=== PATIENT | male | born 1980 | race Caucasian/White ===

== ENCOUNTER 2017-08-04 22:59 | Inpatient (IN) | payer SELFPAY ==
[~2017-08-04] VITALS: Ht 182.9 cm; Wt 69.0 kg
[~2017-08-04 22:59] MED LIST: CLIN1CAP5 PO; LORTA5 PO; PENI500T PO; PERC5TAB12 PO
[2017-08-04 23:20] VITALS: BP 103/51; PULSE 103; RESP 15; TEMP 102.7; O2SAT 100
[2017-08-04] MEDS ORDERED: SODIUM CHLOR 0.9% 1000 ML INJ 400 ML IV ONE (23:32)
[2017-08-04] MEDS ORDERED: SODIUM CHLOR 0.9% 1000 ML INJ 1,000 ML IV ONE ×2 (23:32)
[2017-08-04 23:39] VITALS: RESP 15; O2SAT 100
--- NOTE | 2017-08-04 23:40 | PD ---
HPI Chief Complaint: Medical Clearance Time Seen by Provider: 23:29 Travel History International Travel<30 days: No Contact w/Intl Traveler<30days: No Traveled to known affect area: No History of Present Illness HPI 37 years old male was brought in by EMS for generalized malaise and not feeling well. Patient uncooperative to EMS and not answering questions. Patient is not answering questions to me and my nurse also. Unable to find out any past medical history, medication, allergies. PFSH Past Medical History Asthma: Yes Blood Disorders: No Anxiety: Yes Cancer: No Diminished Hearing: No Endocrine: No Gastrointestinal Disorders: No Genitourinary: No Immune Disorder: No Implanted Vascular Access Dvce: No Musculoskeletal: Yes (FX FEMUR, FX MANDIBLE, FX HAND) Neurologic: No Psychiatric: Yes Reproductive: No Respiratory: Yes PNEUMOCCOCAL Vaccine (Year): 2 Past Surgical History Abdominal Surgery: No Cardiac Surgery: No Ear Surgery: No Endocrine Surgery: No Eye Surgery: No Genitourinary Surgery: No Gynecologic Surgery: No Neurologic Surgery: No Oral Surgery: Yes (FRACTURED MANDIBLE RIGHT 2008) Thoracic Surgery: No Other Surgery: Yes Social History Alcohol Use: No Tobacco Use: Yes (1 PPD) Substance Use: Yes Allergies-Medications (Allergen,Severity, Reaction): Coded Allergies: codeine (Unverified Adverse Reaction, Mild, Nausea/Vomiting, 06/05/17) Reported Meds & Prescriptions Reported Meds & Active Scripts Active Percocet 5-325 mg (Oxycodone/Acetaminophen) Oxycodone 5/325 Acetaminophen Tab 1 Tab PO Q6H PRN Clindamycin Hcl (Clindamycin HCl) 150 Mg Cap 300 Mg PO Q6H Reported Hydrocodone/Acetaminophen 5 mg/325 mg 1 Tab 1 Tab PO Q4H PRN Pen Vk (Penicillin V Potassium) 500 Mg Tab 500 Mg PO QID Review of Systems General / Constitutional: Positive: Fever Eyes: No: Visual changes HENT: No: Headaches Cardiovascular: No: Chest Pain or Discomfort Respiratory: No: Shortness of Breath Gastrointestinal: No: Abdominal Pain Genitourinary: No: Dysuria Musculoskeletal: No: Pain Skin: No Rash Neurologic: No: Weakness Psychiatric: No: Depression Endocrine: No: Polydipsia Hematologic/Lymphatic: No: Easy Bruising Physical Exam Narrative GENERAL: Well-nourished, well-developed patient. SKIN: Focused skin assessment warm/dry. Multiple pustule lesions on the extremities. HEAD: Normocephalic. EYES: No scleral icterus. No injection or drainage. Pupils 3 mm equal reactive. NECK: Supple, trachea midline. No JVD or lymphadenopathy. No meningismus CARDIOVASCULAR: Regular rate and rhythm without murmurs, gallops, or rubs. RESPIRATORY: Breath sounds equal bilaterally. No accessory muscle use. GASTROINTESTINAL: Abdomen soft, non-tender, nondistended. MUSCULOSKELETAL: No cyanosis, or edema. BACK: Nontender without obvious deformity. No CVA tenderness. Neurologic exam: Patient is lethargic, refuses answer questions. Patient moves all extremity well. Patient looking around and open eyes on his own. No obvious focal neurological deficit. Data Data Last Documented VS Vital Signs Date Time Temp Pulse Resp B/P (MAP) Pulse Ox O2 Delivery O2 Flow Rate FiO2 08/05/17 03:08 99 15 94/52 (66) 94 08/04/17 23:39 Room Air 08/04/17 23:20 102.7 Orders Orders Electrocardiogram (08/04/17 23:32) Complete Blood Count With Diff (08/04/17 23:32) Comprehensive Metabolic Panel (08/04/17 23:32) Prothrombin Time / Inr (Pt) (08/04/17:32) Act Partial Throm Time (Ptt) (08/04/17 23:32) Lactic Acid Sepsis Protocol (08/04/17 23:32) Magnesium (Mg) (08/04/17:32) Phosphorus (Po4) (08/04/17 23:32) Troponin I (08/04/17:32) Urinalysis - C+S If Indicated (08/04/17 23:32) Blood Culture (08/04/17 23:32) Chest, Single Ap (08/04/17 23:32) Blood Glucose (08/04/17 23:32) Ecg Monitoring (08/04/17:32) Iv Access Insert/Monitor (08/04/17:32) Oximetry (08/04/17:32) Oxygen Administration (08/04/17 23:32) Sodium Chlor 0.9% 1000 Ml Inj (Ns 1000 M (08/04/17 23:32) Sodium Chlor 0.9% 1000 Ml Inj (Ns 1000 M (08/04/17 23:32) Sodium Chlor 0.9% 1000 Ml Inj (Ns 1000 M (08/04/17 23:32) Vancomycin Inj (Vancomycin Inj) (08/04/17 23:45) Piperacil-Tazo 3.375 Gm Premix (Zosyn 3. (08/04/17 23:45) Ondansetron Inj (Zofran Inj) (08/05/17 00:00) Calcium Gluconate Inj (Calcium Gluconate (08/05/17 01:00) Potassium Chloride (Kcl) (08/05/17 01:00) Potassium Chlor 20 Meq Premix (Kcl 20 Me (08/05/17 01:00) Acetaminophen Supp (Tylenol Supp) (08/05/17 03:15) Potassium Chlor 20 Meq Premix (Kcl 20 Me (08/05/17 03:15) Labs Laboratory Tests Test 08/04/17 23:38 White Blood Count 4.2 TH/MM3 Red Blood Count 3.28 MIL/MM3 Hemoglobin 9.7 GM/DL Hematocrit 28.7 % Mean Corpuscular Volume 87.7 FL Mean Corpuscular Hemoglobin 29.5 PG Mean Corpuscular Hemoglobin Concent 33.7 % Red Cell Distribution Width 12.8 % Platelet Count 126 TH/MM3 Mean Platelet Volume 7.9 FL Neutrophils (%) (Auto) 89.6 % Lymphocytes (%) (Auto) 5.7 % Monocytes (%) (Auto) 4.6 % Eosinophils (%) (Auto) 0.0 % Basophils (%) (Auto) 0.1 % Neutrophils # (Auto) 3.7 TH/MM3 Lymphocytes # (Auto) 0.2 TH/MM3 Monocytes # (Auto) 0.2 TH/MM3 Eosinophils # (Auto) 0.0 TH/MM3 Basophils # (Auto) 0.0 TH/MM3 CBC Comment DIFF FINAL Differential Comment Prothrombin Time 11.4 SEC Prothromb Time International Ratio 1.0 RATIO Activated Partial Thromboplast Time 25.4 SEC Blood Urea Nitrogen 6 MG/DL Creatinine 0.66 MG/DL Random Glucose 91 MG/DL Total Protein 5.4 GM/DL Albumin 2.2 GM/DL Calcium Level 6.1 MG/DL Phosphorus Level 1.2 MG/DL Magnesium Level 1.2 MG/DL Alkaline Phosphatase 50 U/L Aspartate Amino Transf (AST/SGOT) 9 U/L Alanine Aminotransferase (ALT/SGPT) 10 U/L Total Bilirubin 0.7 MG/DL Sodium Level 138 MEQ/L Potassium Level 2.7 MEQ/L Chloride Level 110 MEQ/L Carbon Dioxide Level 20.7 MEQ/L Anion Gap 7 MEQ/L Estimat Glomerular Filtration Rate 137 ML/MIN Lactic Acid Level 1.2 mmol/L Protein Corrected Calcium 6.9 MG/DL Troponin I LESS THAN 0.02 NG/ML MDM Medical Decision Making Medical Screen Exam Complete: Yes Emergency Medical Condition: Yes Interpretation(s) 2:56 AM. Chest x-ray shows no acute consolidation. CBC WBC 4.2. Hemoglobin 9.7 hematocrit 20.7. Platelet 126. 89 neutrophil. Potassium 2.7. Chloride 110. Bicarbonate 20.7. Protein corrected calcium 6.9. Cardiac enzymes are normal. Lactic acid 1.2. Differential Diagnosis Differential diagnosis including sepsis, meningitis, electrolyte abnormality, dehydration, TIA, CVA. Narrative Course 37 years old male with fever and multiple partial lesions on the extremity. Suspecting IV drug abuse. Suspecting sepsis. Normal saline solution 2 L IV bolus. Vancomycin 1 g IV. Zosyn 3.375 g IV given. KCl 20 mEq IV given. Repeat KCl 20 mEq IV. Patient refused to take KCl by mouth. Tylenol 650 mg suppository given. Calcium gluconate 1 g IV given. Diagnosis Primary Impression: Sepsis Qualified Codes: A41.9 - Sepsis, unspecified organism Additional Impressions: Hypokalemia Hypocalcemia Nathan Florian MD Aug 04, 2017 23:40
[2017-08-04] MEDS ORDERED: VANCOMYCIN INJ 1,000 MG in SODIUM CHLOR 0.9% 250 ML INJ 250 ML IV ONE (23:45)
[2017-08-04] MEDS ORDERED: PIPERACIL-TAZO 3.375 GM PREMIX 50 ML IV ONE (23:45)
[2017-08-05] VITALS (11 sets, daily range): BP systolic 94–114; BP diastolic 50–68; PULSE 70–99; RESP 15–32; TEMP 98.9–100.8; O2SAT 94–100
[2017-08-05] MEDS ORDERED: ONDANSETRON HCL 4 MG/2 ML VIAL IV PUSH ONE
--- NOTE | 2017-08-05 | RADRPT ---
EXAM DATE/TIME: 08/04/2017 23:49 [facility] COMPARISON: No previous studies available for comparison. INDICATIONS : Fever. MEDICAL HISTORY : Unobtainable. SURGICAL HISTORY : Unobtainable. ENCOUNTER: Initial ACUITY: 1 day PAIN SCORE: Non-responsive. LOCATION: Bilateral chest FINDINGS: The image is distorted by motion blurring. The heart size is normal. The lungs are grossly clear. A s ignificant effusion is not seen. CONCLUSION: No acute disease. Ulysses Valentino MD on August 04, 2017 at 23:58 Board Certified Radiologist. This report was verified electronically.
[2017-08-05 00:14] LABS: AUTOMATED NEUTROPHIL # 3.7 TH/MM3 (1.8-7.7); BASOPHIL % 0.1 % (0.0-2.0); HEMATOCRIT 28.7 % (39.0-51.0); HEMO FLAGS DIFF FINAL; LYMPH % 5.7 % (9.0-44.0); LYMPHOCYTE # 0.2 TH/MM3 (1.0-4.8); MEAN CELL VOLUME 87.7 FL (80.0-100.0); MEAN CORPUSCULAR HEMOGLOBIN 29.5 PG (27.0-34.0); MEAN CORPUSCULAR HGB CONC 33.7 % (32.0-36.0); MONO % 4.6 % (0.0-8.0); NEUT % 89.6 % (16.0-70.0); PLATELET COUNT 126 TH/MM3 (150-450); RED BLOOD COUNT 3.28 MIL/MM3 (4.50-5.90); RED CELL DISTRIBUTION WIDTH 12.8 % (11.6-17.2); WHITE BLOOD COUNT 4.2 TH/MM3 (4.0-11.0)
[2017-08-05 00:22] LABS: APTT (PATIENT) 25.4 SEC (24.3-30.1); PROTHROMBIN TIME - PATIENT 11.4 SEC (9.8-11.6)
[2017-08-05 00:45] LABS: ALKALINE PHOSPHATASE 50 U/L (45-117); ALT (GPT) 10 U/L (12-78); ANION GAP 7 MEQ/L (5-15); AST (GOT) 9 U/L (15-37); BICARBONATE 20.7 MEQ/L (21.0-32.0); BLOOD UREA NITROGEN 6 MG/DL (7-18); CHLORIDE 110 MEQ/L (98-107); GLOMERULAR FILTRATION RATE 137 ML/MIN (>89); MAGNESIUM 1.2 MG/DL (1.5-2.5); SODIUM (NA) 138 MEQ/L (136-145); TOTAL BILIRUBIN ADULT 0.7 MG/DL (0.2-1.0)
[2017-08-05 00:49] LABS: CALCIUM-PROTEIN CORRECTED 6.9 MG/DL (8.5-10.1); POTASSIUM 2.7 MEQ/L (3.5-5.1)
[2017-08-05] MEDS ORDERED: POTASSIUM CHLORIDE 20 MEQ CONTROLLED RELEASE TAB PO ONE (01:00)
[2017-08-05] MEDS ORDERED: CALCIUM GLUCONATE INJ 1 GM in DEXTROSE 5% IN WATER 100ML INJ 100 ML IV ONE ×2 (01:00)
[2017-08-05] MEDS ORDERED: POTASSIUM CHLOR 20 MEQ PREMIX 100 ML IV ONE ×2 (01:00→03:15)
[2017-08-05] MEDS ORDERED: ACETAMINOPHEN 650 MG SUPP RECTAL ONE (03:15)
[2017-08-05] MEDS ORDERED: SODIUM CHLOR 0.9% 1000 ML INJ 1,000 ML IV SCH (03:40)
[2017-08-05] MEDS ORDERED: CHLORHEXIDINE GLUCONATE 2 % 1 PACK (2 CLOTHS) TOP PRN (03:45)
[2017-08-05] MEDS ORDERED: SODIUM CHLORIDE 0.9% FLUSH 10 ML FLUSH IV FLUSH PRN (03:45)
[2017-08-05] MEDS ORDERED: RESP: ALBUTEROL 2.5 MG/3 ML NEB (PRN) INH (03:45)
[2017-08-05] MEDS ORDERED: POTASSIUM PHOSPHATE INJ 30 MMOL in SODIUM CHLOR 0.9% 250 ML INJ 250 ML IV PRN (03:45)
[2017-08-05] MEDS ORDERED: POTASSIUM CHLOR 20 MEQ PREMIX 100 ML IV PRN ×2 (03:45)
[2017-08-05] MEDS ORDERED: BISACODYL 10 MG SUPP RECTAL PRN (03:45)
[2017-08-05] MEDS ORDERED: ONDANSETRON HCL 4 MG/2 ML VIAL IV PUSH PRN (03:45)
[2017-08-05] MEDS ORDERED: SODIUM PHOSPHATE INJ 30 MMOL in SODIUM CHLOR 0.9% 250 ML INJ 240 ML IV PRN (03:45)
[2017-08-05] MEDS ORDERED: MAGNESIUM HYDROXIDE SUSP 30 ML CUP PO PRN (03:45)
[2017-08-05] MEDS ORDERED: ACETAMINOPHEN 325 MG TAB PO PRN (03:45)
[2017-08-05] MEDS ORDERED: MISCELLANEOUS NURSING INFORMATION XX SCH (03:45)
[2017-08-05] MEDS ORDERED: SENNOSIDES 8.6 MG TAB PO PRN (03:45)
[2017-08-05] MEDS ORDERED: POTASSIUM CHLORIDE 25 MEQ EFFERVESCENT TAB PO PRN (03:45)
[2017-08-05] MEDS ORDERED: POTASSIUM CHLOR 40 MEQ PREMIX 100 ML IV PRN ×2 (03:45)
[2017-08-05] MEDS ORDERED: MAGNESIUM SULFATE INJ 4 GM in SODIUM CHLORIDE 0.9% INJ 92 ML IV PRN (03:45)
[2017-08-05] MEDS ORDERED: MAGNESIUM SULFATE INJ 2 GM in SODIUM CHLORIDE 0.9% INJ 96 ML IV PRN (03:45)
[2017-08-05] MEDS ORDERED: LACTULOSE SYRUP 20 GM/30 ML CUP PO PRN (03:45)
[2017-08-05] MEDS ORDERED: MAGNESIUM OXIDE 400 MG TAB PO PRN (03:45)
[2017-08-05] MEDS ORDERED: POTASSIUM PHOSPHATE MONOBASIC 500 MG TAB PO/TUBE PRN (03:45)
[2017-08-05] MEDS ORDERED: POTASSIUM PHOSPHATE MONOBASIC 500 MG TAB PO PRN (03:45)
[2017-08-05] MEDS ORDERED: CHLORHEXIDINE GLUCONATE 2 % 1 PACK (2 CLOTHS) TOP SCH (04:00)
--- NOTE | 2017-08-05 04:19 | HHI.HP ---
HPI Service Critical Care Medicine Primary Care Physician No Primary Care Physician Admission Diagnosis sepsis. Hypokalemia. Hypocalcemia. Diagnosis: Travel History International Travel<30 Days: No Contact w/Intl Traveler <30 Da: No Traveled to Known Affected Are: No Sepsis Criteria SIRS Criteria (2 or more): Temp > 100.9 or < 96.8, Heart rate over 90 Sepsis Criteria (SIRS+source): Infect source susp/known Criteria Outcome: Meets sepsis criteria History of Present Illness 37-year-old male with past medical history of alcohol abuse who presents to [facility] emergency department after he called [facility] from [place] due to "not feeling well". He does not answer any more detailed questions regarding his symptoms. He is awake but is refusing to cooperate with staff, swearing and threatening. He is febrile to 102.7 is tachycardic in 110s. Normotensive. He has multiple scabbed skin lesions on right chest and right lower leg and left arm which may be due to picking behavior vs skin popping. He seems to have some rhinorrhea. No cough. CXR is negative. U/a is pending. WBC is 4.2, hgb 97 and platelets are 126. Coags are normal. Normal creatinine and lactic acid. She is hypokalemic, Hypocalcemic, hypophosphatemic, and hypomagnesemic. He received 3 L normal saline bolus, vancomycin, Zosyn, potassium chloride 40 mEq IV, calcium gluconate 1 g IV in the emergency department. Past Family Social History Allergies: Coded Allergies: codeine (Unverified Adverse Reaction, Mild, Nausea/Vomiting, 06/05/17) Past Medical History Alcohol abuse Tobacco abuse Past Surgical History ORIF left femur 08/2008 ORIF mandible 06/2009 Chest tube 2007 Reported Medications None Family History Unable to obtain secondary to patient's clinical condition Social History Tobacco abuse Alcohol abuse UDS positive for opiates and benzos during prior visits. Physical Exam Vital Signs Vital Signs Date Time Temp Pulse Resp B/P (MAP) Pulse Ox O2 Delivery O2 Flow Rate FiO2 08/05/17 03:08 99 15 94/52 (66) 94 08/04/17 23:39 15 100 Room Air 08/04/17 23:20 102.7 103 15 103/51 (68) 100 Physical Exam GENERAL: Thin male who is laying curled up in the ED stretcher under the sheets complaining of chills. He is uncooperative. SKIN: Warm and dry. She has multiple ~1cm scabbed skin lesions over left arm, right chest, right leg. Some on right lower leg have some mild surrounding erythema. None appear fluctuant or with spontaneous drainage. HEAD: Atraumatic. Normocephalic. EYES: Pupils equal and round, 2mm . No scleral icterus. No injection or drainage. ENT: Very poor dentition with broken decayed teeth. Not cooperative with full oral exam. Mucous membranes dry. NECK: Trachea midline. No JVD. Neck is very supple without meningismus. CARDIOVASCULAR: Tachycardic, regular, sinus tach on the monitor with rate in the 110s.. No murmurs rubs or gallops. RESPIRATORY: Not coughing during the exam. Clear to auscultation bilaterally with no wheezes Rales or rhonchi. GASTROINTESTINAL: Abdomen soft, non-tender, nondistended. Bowel sounds present. No rebound or guarding. No CVA tenderness. : He held urinal and voided about 400 ML's of light yellow urine. MUSCULOSKELETAL: Extremities without clubbing, cyanosis, or edema. No obvious deformities. NEUROLOGICAL: Opens eyes spontaneously. Moves all extremities actively without focal deficit. He does not answer questions of orientation, says "leave me alone" and "f all you guys". Laboratory Laboratory Tests Test 08/04/17 23:38 White Blood Count 4.2 Red Blood Count 3.28 Hemoglobin 9.7 Hematocrit 28.7 Mean Corpuscular Volume 87.7 Mean Corpuscular Hemoglobin 29.5 Mean Corpuscular Hemoglobin Concent 33.7 Red Cell Distribution Width 12.8 Platelet Count 126 Mean Platelet Volume 7.9 Neutrophils (%) (Auto) 89.6 Lymphocytes (%) (Auto) 5.7 Monocytes (%) (Auto) 4.6 Eosinophils (%) (Auto) 0.0 Basophils (%) (Auto) 0.1 Neutrophils # (Auto) 3.7 Lymphocytes # (Auto) 0.2 Monocytes # (Auto) 0.2 Eosinophils # (Auto) 0.0 Basophils # (Auto) 0.0 CBC Comment DIFF FINAL Differential Comment Prothrombin Time 11.4 Prothromb Time International Ratio 1.0 Activated Partial Thromboplast Time 25.4 Blood Urea Nitrogen 6 Creatinine 0.66 Random Glucose 91 Total Protein 5.4 Albumin 2.2 Calcium Level 6.1 Phosphorus Level 1.2 Magnesium Level 1.2 Alkaline Phosphatase 50 Aspartate Amino Transf (AST/SGOT) 9 Alanine Aminotransferase (ALT/SGPT) 10 Total Bilirubin 0.7 Sodium Level 138 Potassium Level 2.7 Chloride Level 110 Carbon Dioxide Level 20.7 Anion Gap 7 Estimat Glomerular Filtration Rate 137 Lactic Acid Level 1.2 Protein Corrected Calcium 6.9 Troponin I LESS THAN 0.02 Date/Time Source Procedure Growth Status 08/04/17 23:39 Blood Peripheral Aerobic Blood Culture Pending Received 08/04/17 23:39 Blood Peripheral Anaerobic Blood Culture Pending Received Result Diagram: 08/04/17233708/04/172337 Septic Shock Reassessment Heart: Other (tachycardic) Lungs: Clear Skin: Warm Peripheral Pulses: Bounding Right Radial Bounding Left Radial Bounding Right Posterior Tibial Bounding Left Posterior Tibial Capillary Refill: <2 seconds Caprini VTE Risk Assessment Caprini Risk Assessment Model Point Value = 1 Point Value = 2 Point Value = 3 Point Value = 5 Age 41-60 Minor surgery BMI > 25 kg/m2 Swollen legs Varicose veins or History of unexplained or recurrent spontaneous Oral contraceptives or hormone replacement Sepsis (< 1 month) Serious lung disease, including pneumonia (< 1 month) Abnormal pulmonary function Acute myocardial infarction Congestive heart failure (< 1 month) History of inflammatory bowel disease Medical patient at bed rest Age 61-74 Arthroscopic surgery Major open surgery (> 45 min) Laparoscopic surgery (> 45 min) Malignancy Confined to bed (> 72 hours) Immobilizing plaster cast Central venous access Age >= 75 History of VTE Family history of VTE Factor V Leiden Prothrombin [id number] Lupus anticoagulant Anticardiolipin antibodies Elevated serum homocysteine Heparin-induced thrombocytopenia Other congenital or acquired thrombophilia Stroke (< 1 month) Elective arthroplasty Hip, pelvis, or leg fracture Acute spinal cord injury (< 1 month) Prophylaxis Regimen Total Risk Factor Score Risk Level Prophylaxis Regimen 0-1 Low Early ambulation 2 Moderate Order ONE of the following: *Sequential Compression Device (SCD) *Heparin 5000 units SQ BID 3-4 Higher Order ONE of the following medications: *Heparin 5000 units SQ TID *Enoxaparin/Lovenox 40 mg SQ daily (WT < 150 kg, CrCl > 30 mL/min) *Enoxaparin/Lovenox 30 mg SQ daily (WT < 150 kg, CrCl > 10-29 mL/min) *Enoxaparin/Lovenox 30 mg SQ BID (WT < 150 kg, CrCl > 30 mL/min) AND/OR *Sequential Compression Device (SCD) 5 or more Highest Order ONE of the following medications: *Heparin 5000 units SQ TID (Preferred with Epidurals) *Enoxaparin/Lovenox 40 mg SQ daily (WT < 150 kg, CrCl > 30 mL/min) *Enoxaparin/Lovenox 30 mg SQ daily (WT < 150 kg, CrCl > 10-29 mL/min) *Enoxaparin/Lovenox 30 mg SQ BID (WT < 150 kg, CrCl > 30 mL/min) AND *Sequential Compression Device (SCD) Assessment and Plan Problem List: (1) Tobacco abuse ICD Code: Z72.0 - Tobacco use (2) H/O ETOH abuse ICD Code: Z87.898 - Personal history of other specified conditions (3) Anemia ICD Code: D64.9 - Anemia, unspecified (4) Thrombocytopenia ICD Code: D69.6 - Thrombocytopenia, unspecified (5) Protein-calorie malnutrition, mild ICD Code: E44.1 - Mild protein-calorie malnutrition (6) Hypokalemia ICD Code: E87.6 - Hypokalemia Status: Acute (7) Hypocalcemia ICD Code: E83.51 - Hypocalcemia Status: Acute (8) Sepsis ICD Code: A41.9 - Sepsis, unspecified organism Status: Acute (9) Cocaine abuse ICD Code: F14.10 - Cocaine abuse, uncomplicated Assessment and Plan NEURO: h/o Alcohol abuse Thiamine/multivitamin/folate acid IV x 5 days. Can be changed to po if patient became cooperative with taking medications. Monitor for alcohol withdrawal. CT brain to evaluate for e/o septic emboli. Refused to take Tylenol by mouth for fever. Ofirmev 1 g IV now. Send UDS now. RESP: Tobacco abuse On room air. Chest x-ray negative. CV: Monitor blood pressure and heart rate. Received 3 L normal saline bolus in the emergency department. He is normotensive with normal lactic acid. He is voiding. We'll continue maintenance fluids as per below. GI: Regular diet LFTs are normal. FEN/RENAL: Hypokalemia Hypophosphatemia Hypomagnesemia Hypocalcemia He is voiding. Monitor intake and output. Monitor electrolytes and continue to replace. Received potassium chloride 40 mEq IV in the emergency department. We'll give magnesium sulfate 2 g IV now and potassium phosphate 30 mmol IV now. IV fluids with D5 0.45 NaCl with 40 mEq of KCl per liter at 125 mL/hr. repeat BMP/Max/phos at noon Obtain CPK ID: Sepsis Indwelling hardware with prior clemente and screw of L femur, plate of mandible. Patient is septic. Appears likely that he uses IV drugs. He has received Zosyn and vancomycin in the ED. He has multiple skin lesions so will cover for staph/strep with empiric sepsis coverage with Vancomycin, Zosyn. None of these appear fluctuant or appear to require I&D at this time. Follow-up blood cultures. Urinalysis is negative. Chest x-ray is negative. Check influenza screen. Transthoracic echo to evaluate for evidence of endocarditis. He has indwelling hardware so would obtain ID consult if blood cultures positive. HEME: Chronic anemia Thrombocytopenia likely secondary to sepsis Coags are normal ENDO: Euglycemic PROPH: SCDs for DVT prophylaxis. Heparin can be initiated if CT brain is negative. Protonix 40 mg IV daily for stress ulcer prophylaxis. ACCESS: Peripheral IV providing adequate access at this time. Hospitalist consult to assume care 08/06/17 Level III H&P Problem Qualifiers (1) Sepsis: Qualified Codes: A41.9 - Sepsis, unspecified organism Imelda Javier MD Aug 05, 2017 04:19
[2017-08-05] MEDS ORDERED: ACETAMINOPHEN 1000 MG/100 ML 65 ML IV ONE ×2 (04:30→05:00)
[2017-08-05 04:33] LABS: BLOOD, URINE SMALL (NEG); GLUCOSE,URINE NEG (NEG); KETONE, URINE NEG (NEG); NITRITE,URINE NEG (NEG); PH, URINE 5.5 (5.0-8.5); URINE COLOR COLORLESS (YELLW/STRAW)
[2017-08-05 04:39] LABS: COMMENT (UR) CATH-CULT NOT IND; CULTURE IF INDICATED CATH CULTURE NOT IND
[2017-08-05] MEDS ORDERED: POTASSIUM PHOSPHATE INJ 30 MMOL in SODIUM CHLOR 0.9% 250 ML INJ 250 ML IV ONE (05:00)
[2017-08-05] MEDS ORDERED: Vancomycin Consult Pharmacy 1 EA OTHER SCH (05:15)
[2017-08-05] MEDS: D5-1/2 NS + KCL 40 MEQ INJ 1,000 ML IV SCH ×3 (05:34→20:40)
[2017-08-05] MEDS: MULTIVITAMIN INJ 10 ML, FOLIC ACID INJ 1 MG in SODIUM CHLORID 0.9% 500 ML INJ 500 ML IV SCH (05:36)
[2017-08-05] MEDS: THIAMINE INJ 100 MG in SODIUM CHLORIDE 0.9% INJ 100 ML IV SCH (05:36)
[2017-08-05] MEDS: PIPERACIL-TAZO 3.375 GM PREMIX 50 ML IV SCH ×4 (05:39→23:14)
[2017-08-05] MEDS: MAGNESIUM SULFATE 1 GM PREMIX 100 ML IV SCH ×2 (05:39→08:45)
--- NOTE | 2017-08-05 07:30 | EKG ---
Date Performed: 08/04/2017 Time Performed: 23:53:16 PTAGE: 37 years EKG: Probable Sinus rhythm WITH FREQUENT SUPRAVENTRICULAR PREMATURE COMPLEXES ABNORMAL RHYTHM ECG There is marked artifact and I would repeat the EKG NO PREVIOUS TRACING DOCTOR: Afshin Drew Interpretating Date/Time 08/05/2017 07:29:06
--- NOTE | 2017-08-05 07:47 | RADRPT ---
EXAM DATE/TIME: 08/05/2017 07:35 [facility] COMPARISON: No previous studies available for comparison. INDICATIONS : Altered mental status with fever. RADIATION DOSE: 47.51 CTDIvol (mGy) MEDICAL HISTORY : Mandible fracture. SURGICAL HISTORY : Mandible surgery. ENCOUNTER: Initial ACUITY: 1 day PAIN SCALE: 0/10 LOCATION: cranial TECHNIQUE: Multiple contiguous axial images were obtained of the head. Using automated exposure control and adj ustment of the mA and/or kV according to patient size, radiation dose was kept as low as reasonably a chievable to obtain optimal diagnostic quality images. DICOM format image data is available electro nically for review and comparison. FINDINGS: CEREBRUM: The ventricles are normal for age. No evidence of midline shift, mass lesion, hemorrhage or acute in farction. No extra-axial fluid collections are seen. POSTERIOR FOSSA: The cerebellum and brainstem are intact. The 4th ventricle is midline. The cerebellopontine angle i s unremarkable. EXTRACRANIAL: The visualized portion of the orbits is intact. There is chronic sinus disease in the ethmoid sinuses bilaterally. SKULL: The calvaria is intact. No evidence of skull fracture. CONCLUSION: Normal examination of the brain for a patient of this age. Chronic ethmoid sinus disease. Gilbert Callaway MD on August 05, 2017 at 7:44 Board Certified Radiologist. This report was verified electronically.
[2017-08-05] MEDS: SODIUM CHLORIDE 0.9% FLUSH 10 ML FLUSH IV FLUSH SCH ×2 (08:45→20:40)
[2017-08-05] MEDS: DOCUSATE SODIUM 50 MG/SENNA 8.6 MG TAB PO SCH ×2 (08:45→20:40)
[2017-08-05] MEDS ORDERED: PANTOPRAZOLE SODIUM 40 MG VIAL IV PUSH SCH (09:00)
[2017-08-05] MEDS ORDERED: VANCOMYCIN INJ 1,400 MG in SODIUM CHLORID 0.9% 500 ML INJ 500 ML IV SCH (09:00)
[2017-08-05] MEDS ORDERED: CALCIUM GLUCONATE INJ 2 GM in DEXTROSE 5% IN WATER 100ML INJ 100 ML IV ONE ×2 (10:00)
[2017-08-05] MEDS ORDERED: LORazepam 2 MG/ML VIAL IV PUSH PRN ×4 (14:00)
[2017-08-05] MEDS ORDERED: LORazepam 1 MG TAB PO PRN (14:00)
[2017-08-05] MEDS ORDERED: LORazepam 2 MG TAB PO PRN (14:00)
[2017-08-05] MEDS ORDERED: HALOPERIDOL LACTATE 5 MG/ML AMP IM PRN (14:00)
[2017-08-05] MEDS ORDERED: FLUMAZENIL 0.5 MG/5 ML VIAL IV PUSH PRN (14:00)
--- NOTE | 2017-08-05 14:12 | ECHRPT ---
Indication: endocaditis CONCLUSIONS Trace mitral valve regurgitation. There is trace tricuspid valve regurgitation. The estimated pulmonary arterial pressure is 23 mmHg. The pulmonary valve is not well visualized. BP: 114 / 68 HR: 83 Rhythm: Sinus MEASUREMENTS (Male / Female) Normal Values Technical Quality:Good 2D ECHO LVOT Diameter 1.9 cm LV Ejection Fraction MOD 4C 66.7 % LV Cardiac Index MOD 4C 2839.7 cm/minm LV Ejection Fraction 4C AL 66.1 % LV Cardiac Index 4C AL 2916.7 cm/minm M-MODE Aortic Root Diameter MM 2.9 cm AV Cusp Separation MM 2.2 cm DOPPLER AV Peak Velocity 113.6 cm/s AV Peak Gradient 5.2 mmHg LVOT Peak Velocity 116.0 cm/s LVOT Peak Gradient 5.4 mmHg AV Area Cont Eq pk 2.9 cm MV Area PHT 4.2 cm Mitral E Point Velocity 91.8 cm/s Mitral A Point Velocity 55.3 cm/s Mitral E to A Ratio 1.7 LV E' Lateral Velocity 15.8 cm/s Mitral E to LV E' Lateral Ratio 5.8 LV E' Septal Velocity 13.9 cm/s Mitral E to LV E' Septal Ratio 6.6 TR Peak Velocity 238.0 cm/s TR Peak Gradient 22.7 mmHg PV Peak Velocity 93.7 cm/s PV Peak Gradient 3.5 mmHg FINDINGS LEFT VENTRICLE Normal left ventricular size and wall thickness. The left ventricular systolic function is normal wi th an estimated ejection fraction in the range of 60-65%. Left ventricular diastolic function parameters a re normal. RIGHT VENTRICLE Normal right ventricular size and systolic function. LEFT ATRIUM The left atrial size is normal. RIGHT ATRIUM The right atrial size is normal. ATRIAL SEPTUM Normal atrial septal thickness without atrial level shunting by limited color doppler interrogation. AORTA The aortic root and proximal ascending aorta are normal in size on limited imaging. MITRAL VALVE Structurally normal mitral valve. Trace mitral valve regurgitation. AORTIC VALVE Trileaflet aortic valve. No aortic valve stenosis or regurgitation. TRICUSPID VALVE Structurally normal tricuspid valve. There is trace tricuspid valve regurgitation. The estimated pulmonary arterial pressure is 23 mmHg. PULMONARY VALVE The pulmonary valve is not well visualized. VESSELS The inferior vena cava is normal in size. PERICARDIUM No pericardial effusion. Afshin Drew MD (Electronically Signed) Final Date:05 August 2017 14:10
[2017-08-05 14:20] LABS: ALKALINE PHOSPHATASE 64 U/L (45-117); ALT (GPT) 17 U/L (12-78); ANION GAP 6 MEQ/L (5-15); AST (GOT) 17 U/L (15-37); BICARBONATE 23.7 MEQ/L (21.0-32.0); BLOOD UREA NITROGEN 6 MG/DL (7-18); CHLORIDE 112 MEQ/L (98-107); GLOMERULAR FILTRATION RATE 97 ML/MIN (>89); MAGNESIUM 2.5 MG/DL (1.5-2.5); SODIUM (NA) 142 MEQ/L (136-145); TOTAL BILIRUBIN ADULT 0.9 MG/DL (0.2-1.0)
[2017-08-05] MEDS ORDERED: VANCOMYCIN 1,000 MG/NS 250 ML IV SCH ×2 (21:00)
[2017-08-06] VITALS: BP 101/63; PULSE 79; RESP 18; TEMP 98.6; O2SAT 98
[2017-08-06] MEDS: D5-1/2 NS + KCL 40 MEQ INJ 1,000 ML IV SCH
[2017-08-06 04:00] VITALS: BP 116/63; PULSE 78; RESP 18; TEMP 99.6; O2SAT 98
[2017-08-06] MEDS: THIAMINE INJ 100 MG in SODIUM CHLORIDE 0.9% INJ 100 ML IV SCH (04:29)
[2017-08-06] MEDS: PIPERACIL-TAZO 3.375 GM PREMIX 50 ML IV SCH (04:29)
[2017-08-06] MEDS: MULTIVITAMIN INJ 10 ML, FOLIC ACID INJ 1 MG in SODIUM CHLORID 0.9% 500 ML INJ 500 ML IV SCH (04:41)
[2017-08-06 06:08] LABS: AUTOMATED NEUTROPHIL # 6.8 TH/MM3 (1.8-7.7); BASOPHIL % 0.3 % (0.0-2.0); EOSINOPHIL % 0.2 % (0.0-4.0); HEMATOCRIT 34.4 % (39.0-51.0); HEMO FLAGS DIFF FINAL; LYMPH % 13.1 % (9.0-44.0); LYMPHOCYTE # 1.1 TH/MM3 (1.0-4.8); MEAN CELL VOLUME 87.4 FL (80.0-100.0); MEAN CORPUSCULAR HEMOGLOBIN 29.2 PG (27.0-34.0); MEAN CORPUSCULAR HGB CONC 33.4 % (32.0-36.0); MONO % 7.2 % (0.0-8.0); NEUT % 79.2 % (16.0-70.0); PLATELET COUNT 145 TH/MM3 (150-450); RED BLOOD COUNT 3.93 MIL/MM3 (4.50-5.90); RED CELL DISTRIBUTION WIDTH 13.3 % (11.6-17.2); WHITE BLOOD COUNT 8.6 TH/MM3 (4.0-11.0)
[2017-08-06 06:38] LABS: ANION GAP 9 MEQ/L (5-15); AST (GOT) 17 U/L (15-37); BICARBONATE 22.2 MEQ/L (21.0-32.0); BLOOD UREA NITROGEN 6 MG/DL (7-18); CHLORIDE 110 MEQ/L (98-107); GLOMERULAR FILTRATION RATE 105 ML/MIN (>89); MAGNESIUM 2.2 MG/DL (1.5-2.5); POTASSIUM 3.7 MEQ/L (3.5-5.1); SODIUM (NA) 141 MEQ/L (136-145)
[2017-08-06 06:40] LABS: ALT (GPT) 17 U/L (12-78)
[2017-08-06 06:41] LABS: ALKALINE PHOSPHATASE 56 U/L (45-117); TOTAL BILIRUBIN ADULT 0.6 MG/DL (0.2-1.0)
[2017-08-06 08:00] VITALS: BP 111/66; PULSE 84; RESP 20; TEMP 98.6; O2SAT 98
[2017-08-06] MEDS ORDERED: PHARMACY ORDERED LAB ONE (20:45)
[2017-08-09 09:17] LABS: PHENCYCLIDINE URINE NEG (NEG)
[2017-08-09 09:18] LABS: BATH SALTS (MDPV) UR NEG (NEG); ECSTASY (MDMA) UR NEG (NEG); HEROIN (6-ACETYLMORPHINE) UR NEG (NEG); K2 SPICE UR NEG (NEG); OBMETHADONE UR NEG (NEG)
[2017-08-09 09:19] LABS: GABAPENTIN UR NEG (NEG); HYDROMORPHONE U POS (NEG)
== END 2017-08-06 10:45 | disposition left against medical advice (07) | DRG 872 ==
LOC: NEPC 22:59 → NEDA 08-05 03:43 → HIMN 08-05 04:50 → N04B 08-05 16:34
PROVIDERS: ADMIT Family Medicine; ATTEND Family Medicine
DX: A41.9 Sepsis, unspecified organism (principal); E44.1 Mild protein-calorie malnutrition; D69.59 Other secondary thrombocytopenia; E83.42 Hypomagnesemia; E83.39 Other disorders of phosphorus metabolism; E83.51 Hypocalcemia; E87.6 Hypokalemia; J45.909 Unspecified asthma, uncomplicated; L98.9 Disorder of the skin and subcutaneous tissue, unspecified; D64.9 Anemia, unspecified; F41.9 Anxiety disorder, unspecified; F10.10 Alcohol abuse, uncomplicated; F14.10 Cocaine abuse, uncomplicated; Z68.20 Body mass index [BMI] 20.0-20.9, adult; Z72.0 Tobacco use; Z88.5 Allergy status to narcotic agent
CPT/HCPCS: 70450; 71010; 76937; 80053; 80307; 81001; 82550; 83605; 83735; 84100; 84484; 85025; 85610; 85730; 87040; 87205; 87641; 93005; 93306; 96365; 96366; 96368; 96375; C9113; G0481; J0131; J0610; J2060; J2405; J2543; J3370; J3411; J3475; J3480; J7030; J7040; J7050

== ENCOUNTER 2018-03-02 17:16 | Emergency (ER) | payer OTHER ==
[~2018-03-02] VITALS: Ht 182.9 cm; Wt 80.0 kg
[2018-03-02 17:24] VITALS: BP 124/79; PULSE 96; RESP 26; TEMP 98; O2SAT 96
--- NOTE | 2018-03-02 17:37 | PD ---
HPI Chief Complaint: Abdominal pain, IV drug abuse Time Seen by Provider: 17:37 Travel History International Travel<30 days: No Contact w/Intl Traveler<30days: No Traveled to known affect area: No History of Present Illness HPI 37-year-old male is brought to the emergency room by the police sergeant after he was trying to run away for being arrested. However in the process patient started to get some abdominal pain. He eventually got arrested and because of his complain they brought him to the ER. Patient points to his left upper quadrant as the pain. He says he uses IV heroin on a regular basis. He has not eaten or drank much in past few days. He was tachycardic. He is awake and answering questions appropriately. No radiation of the pain. Now that he is not running and resting the pain is slowly subsiding. No history of nausea vomiting. Patient says he last ate or drank something yesterday. He urinated this morning. The police sergeant mentioned that patient is a chronic IV drug abuser. Patient says he has not been tested for hep C or HIV and hence not sure if he has it or not. [facility] Past Medical History Narrative Medical List of his past medical, surgical, social and family history is reviewed from the nursing note. Asthma: Yes Blood Disorders: No Anxiety: Yes Cancer: No Diminished Hearing: No Endocrine: No Gastrointestinal Disorders: No Genitourinary: No Immune Disorder: No Implanted Vascular Access Dvce: No Musculoskeletal: Yes (FX FEMUR, FX MANDIBLE, FX HAND) Neurologic: No Psychiatric: Yes Reproductive: No Respiratory: Yes PNEUMOCCOCAL Vaccine (Year): 2 Past Surgical History Abdominal Surgery: No Cardiac Surgery: No Ear Surgery: No Endocrine Surgery: No Eye Surgery: No Genitourinary Surgery: No Gynecologic Surgery: No Neurologic Surgery: No Oral Surgery: Yes (FRACTURED MANDIBLE RIGHT 2008) Thoracic Surgery: No Other Surgery: Yes Social History Alcohol Use: Yes Tobacco Use: Yes Substance Use: Yes Allergies-Medications (Allergen,Severity, Reaction): Coded Allergies: codeine (Unverified Adverse Reaction, Mild, Nausea/Vomiting, 06/05/17) Comments List of his allergies reviewed from the nursing note. Reported Meds & Prescriptions Reported Meds & Active Scripts Active Percocet 5-325 mg (Oxycodone/Acetaminophen) Oxycodone 5/325 Acetaminophen Tab 1 Tab PO Q6H PRN Clindamycin Hcl (Clindamycin HCl) 150 Mg Cap 300 Mg PO Q6H Reported Hydrocodone/Acetaminophen 5 mg/325 mg 1 Tab 1 Tab PO Q4H PRN Pen Vk (Penicillin V Potassium) 500 Mg Tab 500 Mg PO QID Narrative Medication List of his home medications reviewed from the nursing note. Review of Systems Except as stated in HPI: all other systems reviewed are Neg Gastrointestinal: Positive: Abdominal Pain Psychiatric: Positive: Substance Abuse Physical Exam Narrative GENERAL: Awake, alert, moderate SKIN: Focused skin assessment warm/dry. Needle track [place] on both upper extremity HEAD: Atraumatic. Normocephalic. EYES: Pupils equal and round. No scleral icterus. No injection or drainage. ENT: No nasal bleeding or discharge. Dry mucous membrane and coated tongue NECK: Trachea midline. No JVD. CARDIOVASCULAR: Regular rate and rhythm. Tachycardia. No murmur appreciated. RESPIRATORY: No accessory muscle use. Clear to auscultation. Breath sounds equal bilaterally. GASTROINTESTINAL: Abdomen soft, non-tender, nondistended. Hepatic and splenic margins not palpable. MUSCULOSKELETAL: No obvious deformities. No clubbing. No cyanosis. No edema. NEUROLOGICAL: Awake and alert. No obvious cranial nerve deficits. Motor grossly within normal limits. Normal speech. PSYCHIATRIC: Appropriate mood and affect; insight and judgment normal. Data Data Last Documented VS Vital Signs Date Time Temp Pulse Resp B/P (MAP) Pulse Ox O2 Delivery O2 Flow Rate FiO2 03/02/18 19:42 81 16 127/61 (83) 100 Room Air 03/02/18 17:45 98.0 Orders Orders Complete Blood Count With Diff (03/02/18 17:41) Comprehensive Metabolic Panel (03/02/18 17:41) Blood Culture (03/02/18 17:41) Urinalysis - C+S If Indicated (03/02/18 17:41) Sodium Chlor 0.9% 1000 Ml Inj (Ns 1000 M (03/02/18 17:45) Sodium Chlor 0.9% 1000 Ml Inj (Ns 1000 M (03/02/18 17:45) Chest, Pa & Lat (03/02/18 ) Ve Teacher / Telemetry ARLYN.Q8H (03/02/18 17:41) Labs Laboratory Tests Test 03/02/18 18:01 03/02/18 19:40 White Blood Count 10.5 TH/MM3 Red Blood Count 4.85 MIL/MM3 Hemoglobin 14.1 GM/DL Hematocrit 42.4 % Mean Corpuscular Volume 87.3 FL Mean Corpuscular Hemoglobin 29.2 PG Mean Corpuscular Hemoglobin Concent 33.4 % Red Cell Distribution Width 12.9 % Platelet Count 211 TH/MM3 Mean Platelet Volume 8.8 FL Neutrophils (%) (Auto) 87.7 % Lymphocytes (%) (Auto) 6.7 % Monocytes (%) (Auto) 4.9 % Eosinophils (%) (Auto) 0.5 % Basophils (%) (Auto) 0.2 % Neutrophils # (Auto) 9.2 TH/MM3 Lymphocytes # (Auto) 0.7 TH/MM3 Monocytes # (Auto) 0.5 TH/MM3 Eosinophils # (Auto) 0.0 TH/MM3 Basophils # (Auto) 0.0 TH/MM3 CBC Comment DIFF FINAL Differential Comment Blood Urea Nitrogen 16 MG/DL Creatinine 1.32 MG/DL Random Glucose 153 MG/DL Total Protein 8.8 GM/DL Albumin 3.7 GM/DL Calcium Level 9.1 MG/DL Alkaline Phosphatase 78 U/L Aspartate Amino Transf (AST/SGOT) 20 U/L Alanine Aminotransferase (ALT/SGPT) 17 U/L Total Bilirubin 0.4 MG/DL Sodium Level 136 MEQ/L Potassium Level 4.1 MEQ/L Chloride Level 106 MEQ/L Carbon Dioxide Level 18.6 MEQ/L Anion Gap 11 MEQ/L Estimat Glomerular Filtration Rate 61 ML/MIN Urine Color YELLOW Urine Turbidity CLEAR Urine pH 6.0 Urine Specific [place] 1.013 Urine Protein TRACE mg/dL Urine Glucose (UA) NEG mg/dL Urine Ketones NEG mg/dL Urine Occult Blood NEG Urine Nitrite NEG Urine Bilirubin NEG Urine Urobilinogen LESS THAN 2.0 MG/DL Urine Leukocyte Esterase NEG Urine RBC LESS THAN 1 /hpf Urine WBC 1 /hpf Urine Mucus FEW /lpf Microscopic Urinalysis Comment CULT NOT INDICATED MDM Medical Decision Making Medical Screen Exam Complete: Yes Emergency Medical Condition: Yes Medical Record Reviewed: Yes Differential Diagnosis Electrolyte abnormality, dehydration Narrative Course 5:54 PM awaiting for blood test result. Patient is getting IV hydration. Based on the blood test I will decide if a CT of the abdomen and pelvis is required. 7:53 PM blood test in UA are back and within acceptable limits. I am comfortable discharging him home. After the fluid bolus patient's heart rate has come down to the 80s. Patient will be going to police custody. Procedures EKG Prior to Arrival: No Diagnosis Primary Impression: Dehydration Additional Impressions: IV drug abuse Malnourished Qualified Codes: E46 - Unspecified protein-calorie malnutrition Additional Instructions: Please check into [facility] for detox. You should go to the department of health and be tested for HIV and hep C since you are at a high risk given your IV drug abuse history. Disposition: 01 DISCHARGE HOME Condition: Stable Stephen Ruiz MD March 02, 2018 17:37
[2018-03-02 17:45] VITALS: TEMP 98
[2018-03-02] MEDS ORDERED: SODIUM CHLOR 0.9% 1000 ML INJ 1,000 ML IV ONE ×2 (17:45)
[2018-03-02 18:12] LABS: AUTOMATED NEUTROPHIL # 9.2 TH/MM3 (1.8-7.7); BASOPHIL % 0.2 % (0.0-2.0); EOSINOPHIL % 0.5 % (0.0-4.0); HEMATOCRIT 42.4 % (39.0-51.0); HEMOGLOBIN 14.1 GM/DL (13.0-17.0); LYMPH % 6.7 % (9.0-44.0); LYMPHOCYTE # 0.7 TH/MM3 (1.0-4.8); MEAN CELL VOLUME 87.3 FL (80.0-100.0); MEAN CORPUSCULAR HEMOGLOBIN 29.2 PG (27.0-34.0); MEAN CORPUSCULAR HGB CONC 33.4 % (32.0-36.0); MEAN PLATELET VOLUME 8.8 FL (7.0-11.0); MONO % 4.9 % (0.0-8.0); MONOCYTE # 0.5 TH/MM3 (0-0.9); NEUT % 87.7 % (16.0-70.0); PLATELET COUNT 211 TH/MM3 (150-450); RED BLOOD COUNT 4.85 MIL/MM3 (4.50-5.90); RED CELL DISTRIBUTION WIDTH 12.9 % (11.6-17.2); WHITE BLOOD COUNT 10.5 TH/MM3 (4.0-11.0)
--- NOTE | 2018-03-02 18:32 | RADRPT ---
EXAM DATE/TIME: 03/02/2018 18:10 [place] COMPARISON: No previous studies available for comparison. INDICATIONS : Chest Pain MEDICAL HISTORY : Mandible fracture SURGICAL HISTORY : Mandible surgery. ENCOUNTER: Initial ACUITY: 1 day PAIN SCORE: 5/10 LOCATION: chest FINDINGS: PA and lateral views of the chest demonstrate the lungs to be symmetrically aerated without evidence of mass, infiltrate or effusion. The cardiomediastinal contours are unremarkable. Osseous structure s are intact. CONCLUSION: No acute pulmonary infiltrates. Gilbert Callaway MD on March 02, 2018 at 18:29 Board Certified Radiologist. This report was verified electronically.
[2018-03-02 18:42] LABS: ALBUMIN 3.7 GM/DL (3.4-5.0); ALT (GPT) 17 U/L (12-78); AST (GOT) 20 U/L (15-37); BICARBONATE 18.6 MEQ/L (21.0-32.0); BLOOD UREA NITROGEN 16 MG/DL (7-18); CALCIUM 9.1 MG/DL (8.5-10.1); CHLORIDE 106 MEQ/L (98-107); CREATININE 1.32 MG/DL (0.60-1.30); GLOMERULAR FILTRATION RATE 61 ML/MIN (>89); GLUCOSE,RANDOM 153 MG/DL (74-106); SODIUM (NA) 136 MEQ/L (136-145)
[2018-03-02 18:44] LABS: ALKALINE PHOSPHATASE 78 U/L (45-117); TOTAL BILIRUBIN ADULT 0.4 MG/DL (0.2-1.0); TOTAL PROTEIN 8.8 GM/DL (6.4-8.2)
[2018-03-02 18:59] VITALS: BP 123/78
[2018-03-02 19:42] VITALS: BP 127/61; PULSE 81; RESP 16; O2SAT 100
[2018-03-02 19:50] LABS: BILIRUBIN, URINE NEG (NEG); BLOOD, URINE NEG (NEG); GLUCOSE,URINE NEG (NEG); KETONE, URINE NEG (NEG); MUCUS URINE FEW /lpf (OCC); NITRITE,URINE NEG (NEG); URINE COLOR YELLOW (YELLW/STRAW); URINE LEUKOCYTE ESTERASE NEG (NEG)
== END 2018-03-02 20:10 | disposition home or self-care (01) ==
LOC: NEPD 17:16
DX: E86.0 Dehydration (principal); F11.10 Opioid abuse, uncomplicated; E46 Unspecified protein-calorie malnutrition; R00.0 Tachycardia, unspecified; J45.909 Unspecified asthma, uncomplicated; Z72.0 Tobacco use; Z88.5 Allergy status to narcotic agent; Z79.899 Other long term (current) drug therapy
CPT/HCPCS: 71046; 80053; 81001; 85025; 87040; 99284; J7030